=== PATIENT | male | born 1985 | race Caucasian/White ===

== ENCOUNTER → 2019-11-29 | Outpatient (CLI) | payer OTHER ==
[~2019-11-29] MED LIST: AMOX500 PO; Bactrim Ds Tab1 EACH PO; CYCL10 PO; DIAZ5; HYDACE5; HYDACE5 PO; INCARCERATION; MINO50 PO; NAPR500 PO; NAPR550 PO; ONDA4ODT MM; OXYACE5T PO; PENVK500 PO
== END | disposition home or self-care (01) ==
LOC: LAB SHORT 18:00 → LAB EV 18:00
DX: L03.317 Cellulitis of buttock (principal)
CPT/HCPCS: 87070; 87075; 87077; 87147; 87186; 87205

== ENCOUNTER 2021-10-27 21:28 | Inpatient (IN) | payer OTHER ==
[~2021-10-27] VITALS: Ht 175.3 cm; Wt 65.6 kg
[2021-10-27 21:59] LABS: BASOPHILS ABSOLUTE AUTO 0.02 K/mm3 (0.00-0.23); BASOPHILS PERCENT AUTO 1 % (0-2); EOSINOPHILS ABSOLUTE AUTO 0.29 K/mm3 (0.00-0.68); EOSINOPHILS PERCENT AUTO 7 % (0-6); Hematocrit 28.1 % (37.0-53.0); Hemoglobin 9.3 g/dL (13.5-17.5); IMMATURE GRAN ABSOLUTE AUTO 0.04 K/mm3 (0.00-0.10); IMMATURE GRAN PERCENT AUTO 1 % (0-1); LYMPHOCYTES ABSOLUTE AUTO 1.99 K/mm3 (0.84-5.20); LYMPHOCYTES PERCENT AUTO 48 % (21-46); MONOCYTES ABSOLUTE AUTO 0.46 K/mm3 (0.16-1.47); MONOCYTES PERCENT AUTO 11 % (4-13); Mean Corpuscular HGB 29.2 pg (26.0-34.0); Mean Corpuscular HGB Conc 33.1 g/dL (31.5-36.5); Mean Corpuscular Volume 88 fL (80-100); Mean Platelet Volume 10.1 fL (9.1-12.4); NEUTROPHILS ABSOLUTE AUTO 1.39 K/mm3 (1.96-9.15); NEUTROPHILS PERCENT AUTO 33 % (41-73); Platelet Count 128 K/mm3 (150-400); RDW Coefficient Variation 18.7 % (11.7-14.2); RDW Standard Deviation 60.3 fL (35.1-46.3); Red Blood Cell Count 3.19 M/mm3 (4.30-5.90); White Blood Cell Count 4.19 K/mm3 (4.00-11.30)
[2021-10-27 22:17] LABS: Alanine Aminotransfer (ALT/SGP 56 U/L (12-78); Albumin, Blood 2.6 g/dL (3.4-5.0); Albumin/Globulin Ratio 0.5 (0.8-1.8); Alk Phos 164 U/L (50-136); Anion Gap 2 mmol/L (6-16); Aspartate Aminotrans (AST/SGOT 37 U/L (12-37); Bilirubin, Total 0.2 mg/dL (0.1-1.0); Blood Urea Nitrogen 17 mg/dL (8-24); Bun/Creatinine Ratio 23.4 (12.0-20.0); CO2, Blood 31 mmol/L (21-32); Calcium, Blood 8.5 mg/dL (8.5-10.1); Chloride, Blood 104 mmol/L (98-108); Creatinine, Blood 0.73 mg/dL (0.60-1.20); Globulin, Blood 5.1 g/dL (2.2-4.0); Glomerular Filtration Rate >60 (60-); Glucose, Blood 145 mg/dL (70-99); Potassium, Blood 4.2 mmol/L (3.5-5.5); Sodium, Blood 137 mmol/L (136-145); Total Protein, Blood 7.7 g/dL (6.4-8.2)
[2021-10-27 23:37] LABS: Source, Urine Clean Catch
[2021-10-27 23:39] LABS: Bilirubin, Urine Neg (Neg); Blood, Urine Neg (Neg); Glucose Qualitative, Urine Neg (Neg); Ketones, Urine Neg (Neg); Leukocyte Esterase, Urine Neg (Neg); Nitrite, Urine Neg (Neg); Protein, Urine Neg (Neg); Urobilinogen, Urine 1+ (Normal)
[2021-10-27 23:57] LABS: Appearance, Urine Clear (Clear); Color, Urine Yellow (P-Yellow)
[2021-10-28 00:48] LABS: Appearance, CSF Clear (Clear); Color, CSF No Color (No Color)
[2021-10-28 00:49] LABS: RBC Count, CSF 3 /mm3 (0-0); WBC Count, CSF 16 /mm3 (0-5)
[2021-10-28 00:57] LABS: Glucose, CSF 60 mg/dL (40-70)
[2021-10-28 01:07] LABS: Appearance, CSF Clear (Clear); Color, CSF No Color (No Color); RBC Count, CSF 28 /mm3 (0-0); WBC Count, CSF 6 /mm3 (0-5)
[2021-10-28 01:42] LABS: Lymphocytes, CSF 55 % (40-80); Monocytes, CSF 42 % (15-45); Neutrophils, CSF 3 % (0-6)
[2021-10-28 01:45] LABS: Lymphocytes, CSF 53 % (40-80); Monocytes, CSF 32 % (15-45); Neutrophils, CSF 15 % (0-6)
[2021-10-28 02:08] LABS: Cryptococcus Neoformans/Gattii Not Detected (NOT DETECT); Enterovirus Not Detected (NOT DETECT); Escherichia Coli K1 Detected (NOT DETECT); Haemophilus Influenza Not Detected (NOT DETECT); Herpes Simplex Virus 1 Not Detected (NOT DETECT); Herpes Simplex Virus 2 Not Detected (NOT DETECT); Human Herpesvirus 6 Not Detected (NOT DETECT); Human Parechovirus Not Detected (NOT DETECT); Listeria Monocytogenes Not Detected (NOT DETECT); Neisseria Meningitidis Not Detected (NOT DETECT); Streptococcus Agalactiae Not Detected (NOT DETECT); Streptococcus Pneumoniae Not Detected (NOT DETECT); Varicella Zoster Virus Not Detected (NOT DETECT)
--- NOTE | 2021-10-28 02:55 | NUR ---
RECEIVED REPORT FROM ED JUAN MOULTON.
--- NOTE | 2021-10-28 03:40 | NUR ---
PT ARRIVED TO RM 340 VIA [facility]. PT ASSISTED FROM GURNEY TO ROOM BED WITH SOME ASSISTANCE. PT APPEARS TO BE WEAK WHEN STANDING. ON RA. PRETTY ANXIOUS AND APPEARS UNCERTAIN OF WHAT IS GOING ON. BROTHER AT BEDSIDE. VERY ATTENTIVE TO THE PATIENTS NEEDS. WILL PROVIDE CARE T/O SHIFT. BED ALARM ON. CALL LT IN REACH.
--- NOTE | 2021-10-28 05:23 | NUR ---
SHIFT SUMMARY: ED ADMIT AT 0340. PT ALERT AND COOPERATIVE WITH CARE. CAN MAKE HIS NEEDS KNOWN. ANXIOUS AT TIMES. CAN BE REDIRECTED. BED ALARM ON FOR PT SAFETY. USES URINAL AT BEDSIDE WITH SBA. ON RA. NS AT 75 MLS/HR FOR 1.5L. FIRST LITER INFUSING. HAS A RED, DRY, RAISED RASH TO FOREHEAD AND FACE. APPETITE GOOD. NO OTHER NEEDS AT THIS TIME. WILL CONTINUE TO PROVIDE CARE UNTIL SHIFT REPORT TO ONCOMING NURSE.
[2021-10-28 06:28] LABS: BASOPHILS ABSOLUTE AUTO 0.01 K/mm3 (0.00-0.23); BASOPHILS PERCENT AUTO 0 % (0-2); EOSINOPHILS ABSOLUTE AUTO 0.27 K/mm3 (0.00-0.68); EOSINOPHILS PERCENT AUTO 7 % (0-6); Hematocrit 29.6 % (37.0-53.0); Hemoglobin 9.4 g/dL (13.5-17.5); IMMATURE GRAN ABSOLUTE AUTO 0.05 K/mm3 (0.00-0.10); IMMATURE GRAN PERCENT AUTO 1 % (0-1); LYMPHOCYTES ABSOLUTE AUTO 1.44 K/mm3 (0.84-5.20); LYMPHOCYTES PERCENT AUTO 35 % (21-46); MONOCYTES PERCENT AUTO 5 % (4-13); Mean Corpuscular HGB Conc 31.8 g/dL (31.5-36.5); Mean Corpuscular Volume 88 fL (80-100); Mean Platelet Volume 9.9 fL (9.1-12.4); NEUTROPHILS ABSOLUTE AUTO 2.12 K/mm3 (1.96-9.15); NEUTROPHILS PERCENT AUTO 52 % (41-73); Platelet Count 138 K/mm3 (150-400); RDW Coefficient Variation 19.1 % (11.7-14.2); RDW Standard Deviation 61.7 fL (35.1-46.3); Red Blood Cell Count 3.36 M/mm3 (4.30-5.90); White Blood Cell Count 4.09 K/mm3 (4.00-11.30)
[2021-10-28 06:48] LABS: Alanine Aminotransfer (ALT/SGP 48 U/L (12-78); Albumin, Blood 2.5 g/dL (3.4-5.0); Albumin/Globulin Ratio 0.5 (0.8-1.8); Alk Phos 162 U/L (50-136); Anion Gap 3 mmol/L (6-16); Aspartate Aminotrans (AST/SGOT 31 U/L (12-37); Bilirubin, Total 0.2 mg/dL (0.1-1.0); Blood Urea Nitrogen 14 mg/dL (8-24); Bun/Creatinine Ratio 18.7 (12.0-20.0); CO2, Blood 30 mmol/L (21-32); Calcium, Blood 8.6 mg/dL (8.5-10.1); Chloride, Blood 104 mmol/L (98-108); Creatinine, Blood 0.75 mg/dL (0.60-1.20); Globulin, Blood 5.2 g/dL (2.2-4.0); Glomerular Filtration Rate >60 (60-); Glucose, Blood 107 mg/dL (70-99); Potassium, Blood 4.2 mmol/L (3.5-5.5); Sodium, Blood 137 mmol/L (136-145); Total Protein, Blood 7.7 g/dL (6.4-8.2)
[2021-10-28 06:49] LABS: U Amphetamine Screen Not Detected; U Barbituate Screen Not Detected; U Benzodiazapine Screen Not Detected; U Buprenorphine Screen Not Detected; U Cannabinoids Screen DETECTED; U Cocaine Screen Not Detected; U Methadone Screen Not Detected; U Methamphetamine Screen Not Detected; U Opiates Screen DETECTED; U Oxycodone Screen Not Detected; U Phencyclidine Screen Not Detected
[2021-10-28 06:51] LABS: U Propoxyphene Screen Not Detected
--- NOTE | 2021-10-28 09:30 | NUR ---
CALLED DR HUBBARD- UPON MORNING ASSESSMENT IT WAS NOTED THAT THE PT WAS HOT TO THE TOUCH AND SHIVVERING STATING HE WAS COLD. HR ELEVATED. VITALS CHECKED BP LOW (SBP LESS THAN 100) HR 135 TEMP 102.3. TYLENOL GIVEN AT THAT TIME, CALLED DR HOLM FOR FURTHER ORDERS. RECIEVED ORDER FOR OT BOLUS OF 1L NS. REMOVED ALL BLANKETS ON PT, STARTED FLUID BOLUS. PT BEGAN CRYING CALLED PHARMACY TO GET PO MEDICATION FOR ANXIETY. CALLED DAMION MOULTON AND HAD HER ASK DR HOLM TO RETURN TO THE PT ROOM TO REEVALUATE THE PT.
--- NOTE | 2021-10-28 11:00 | NUR ---
DR HLOM AND HANNAH CAME TO SEE THE PT- PT IN BED CRYING C/O PAIN, RECIEVED ORDER FOR PO OXY TID. FLUID BOLUS NEARLY COMPLETED. SPOKE OF THE PT CSF POSITIVE FOR E.COLI, BEING BACTERIAL MENINGITIS. PT ISOLATION CHANGED TO AIRBORN. RECIEVED ORDER TO TRANSFER THE PT TO PCU FOR CLOSER OBSERVATION FOR POSSIBLE SEPSIS W/O ELEVATED WBC R/T HIV. PT BROTHER AT THE BEDSIDE AT THE TIME OF TRANSFER TO ROOM PCU 12. CALLED DR HOLM PRIOR TO TRANSFER TO CLARIFY IVF ORDERS. OK TO FINISH CURRENT LITER AT 125ML/HR THEN RUN ONE ADDITIONAL LITER AT 125ML/HR THEN STOP IVF. PASSED ON IN REPORT TO TANNING WHEEL FILLER.
--- NOTE | 2021-10-28 13:07 | NUR ---
TRANSFER NOTE: PATIENT TRANSFERRED TO PCU 12 THIS AFTERNOON. VERY EMOTIONAL AND HUNGRY. ALERT AND ORIENTED X4. AT TIMES SLOW TO RESPOND. PERRLA. DENIES NUMBNESS/TINGLING. ON ROOM AIR SATING ABOVE 94%. LUNGS SOUNDING CLEAR. TELE SHOWING SINUS TACH WITH HR 100-110'S. BP SOFT. FLUIDS INFUSING AT THIS TIME 125 ML/HR. ONE MORE BAG OF NS TO BE INFUSED AT 125 ML/HR ONCE CURRENT BAG COMPLETED. COMPLAINS OF HUNGER PAINS. BROTHER AT BEDSIDE HELPING FEED SNACKS. COMPLAINS OF CONSTIPATION. CALL PLACED TO DR. HOLM, SEE EMAR FOR ORDERS. FACIAL/SCALP RASH - SMALL RED DRY CIRCLES. PATIENT STATES THEY CAUSE EXTREME PAIN AND ARE ITCHY. HYDROCORTISONE CREAM TO BE APPLIED. BROTHER AT BEDSIDE. ORAL TEMP IMPROVING. AIRBORNE PRECAUTIONS IN PLACE. REGULAR DIET. CALL LIGHT IN REACH. BED ALARM ON FOR SAFETY. PATIENT ORIENTED TO ROOM AND UNIT. WILL CONTINUE TO MONITOR.
--- NOTE | 2021-10-28 17:43 | NUR ---
SHIFT SUMMARY: NO ACUTE CHANGES. PATIENT REMAINS DROWSY, BUT AROUSABLE. REMAINS ON ROOM AIR. TELE SHOWING SINUS RHYTHM - SINUS TACH. DENIES CHEST PAIN. BP REMAINS SOFT. NS INFUSING AT 125 ML/HR. TOLERATING PO DIET, DRINKING FLUIDS. PATIENT HOT TO TOUCH, SHIVERING AT TIMES, AND COMPLAINS OF BEING COLD. TEMPORAL, ORAL, AND AXILLARY TEMPS ALL READING AT 98.2-98.7 DEGREES. TYLENOL GIVEN FOR HEAD/NECK PAIN, NO RELIEF. PRN OXYCODONE GIVEN. PATIENT SLEEPING ON AND OFF. URINE SAMPLE SENT TO LAB, RESULTS PENDING. CALL LIGHT IN REACH. WILL CONTINUE TO MONITOR AND REPORT OFF TO ONCOMING RN.
--- NOTE | 2021-10-28 19:57 | NUR ---
CARE ASSUMPTION PT IS EXTREMELY LETHARGIC ON SLIGHTLY AROPUSING WHEN ASKED A QUUESTION MULTIPLE TIMES. PT UNABLE TO OPEN EYES DUE TO LIGHT SENSITIVITY. PT IS ABLE TO TELL ME HIS NAME, DATE OF AND WHERE HE IS AT BUT ON;Y ANSWERS IN SHPRT SENTANCES W A WEAK MUMBLING VOICE. PUPILSD ARE 2CM AND FIXED. PT HAS EQUAL BUT WEAK PRODUCTION SUPPLY EQUIPMENT TENDER STRENGTH. NO MUSCLE RIGIDITY NOTED AT THIS TIME. PT REPORTS NECK STIFFNESS AND PAIN. BP WNL. HR ST AT 100'S. TEMP AFEBRILE. RR-16. FLUIDS RUNNING AT 125ML/HR. O2 SATS >94% ON RM AIR. WCTM
--- NOTE | 2021-10-29 05:55 | NUR ---
CASINO FLOOR RUNNER SUMMARU PT HAS REMAINED LETHARGIC THIS SHIFT BUT DOES APPEAR SLIGHTLY MORE ALERT THIS AM. PT HAVE HAD DIFFICULTY WITH PHOTOSENSITIVITY SO HE DOES NOT OPEN HIS EYES UNLESS THE LIGHTS ARE DIMMED. BP HAS REMAINED SOFT THIS SHIFT BUT HE HAS MAINTAINED A MAP >65. TELE SHOWING SR/ST 90'S-100'S. O2 SATS >94% ON RM AIR W RESP EVEN AND UNLABORED. PT REPORTING NECK PAIN THROUGHOUT THE SHIFT, MEDICATED PER EMAR. PT REMAINED AFEBRILE THIS SHIFT. PT SLEPT VERY HARD FOR MOST OF THE SHIFT BUT HAS REMAINED AROUSABLY BY SPEECH. PT HAS HAD GOOD URINE OUTPUT THIS SHIFT, SEE I&O'S FOR DETAILS. WILL REPORT TO ONCOMING RN.
[2021-10-29 06:41] LABS: BASOPHILS ABSOLUTE AUTO 0.01 K/mm3 (0.00-0.23); BASOPHILS PERCENT AUTO 0 % (0-2); EOSINOPHILS ABSOLUTE AUTO 0.14 K/mm3 (0.00-0.68); EOSINOPHILS PERCENT AUTO 4 % (0-6); Hematocrit 26.7 % (37.0-53.0); Hemoglobin 8.5 g/dL (13.5-17.5); IMMATURE GRAN ABSOLUTE AUTO 0.02 K/mm3 (0.00-0.10); IMMATURE GRAN PERCENT AUTO 1 % (0-1); LYMPHOCYTES ABSOLUTE AUTO 2.18 K/mm3 (0.84-5.20); LYMPHOCYTES PERCENT AUTO 55 % (21-46); MONOCYTES ABSOLUTE AUTO 0.19 K/mm3 (0.16-1.47); MONOCYTES PERCENT AUTO 5 % (4-13); Mean Corpuscular HGB 28.3 pg (26.0-34.0); Mean Corpuscular HGB Conc 31.8 g/dL (31.5-36.5); Mean Corpuscular Volume 89 fL (80-100); Mean Platelet Volume 10.2 fL (9.1-12.4); NEUTROPHILS ABSOLUTE AUTO 1.42 K/mm3 (1.96-9.15); NEUTROPHILS PERCENT AUTO 36 % (41-73); Platelet Count 151 K/mm3 (150-400); RDW Coefficient Variation 19.1 % (11.7-14.2); RDW Standard Deviation 61.9 fL (35.1-46.3); White Blood Cell Count 3.96 K/mm3 (4.00-11.30)
[2021-10-29 06:58] LABS: Anion Gap 4 mmol/L (6-16); Blood Urea Nitrogen 9 mg/dL (8-24); Bun/Creatinine Ratio 13.7 (12.0-20.0); CO2, Blood 28 mmol/L (21-32); Calcium, Blood 8.1 mg/dL (8.5-10.1); Chloride, Blood 108 mmol/L (98-108); Creatinine, Blood 0.66 mg/dL (0.60-1.20); Glomerular Filtration Rate >60 (60-); Glucose, Blood 93 mg/dL (70-99); Potassium, Blood 3.7 mmol/L (3.5-5.5); Sodium, Blood 140 mmol/L (136-145)
--- NOTE | 2021-10-29 09:03 | NUR ---
ASSUMED CARE FOR PATIENT AT 0700. PATIENT A&0 X4. ANSWERS QUESTIONS APPRORIATELY WITH EYES CLOSED. PLEASANT AND COOPERATIVE WITH CARE. PATIENT REPORTS OF DISCOMFORT AROUND EVA AREA FROM CATHETER INSETION ATTEMPT. PATIENT REPORTS HEADACHE AND BACKACHE WHEN SITTING UPRIGHT IN BED. PATIENT ABLE TO TOLERATE SITTING UP FOR ABOUT 10 MINUTES EATING HIS BREAKFAST AND REQUESTED TO BE LYING BACK WITH THE HOB DOWN . REPOSITIONED PATIENT TO RIGHT SIDE AND HE REPORTED COMFORT. LIGHT DIMMED ON PER PATIENT REQUEST. SCHEDULED MORNING MEDS GIVEN. CALL LIGHT AND URINAL WITHIN REACH. BED ALARM ON AND IN LOW POSITION. WILL CONTINUE MONITOR.
[2021-10-29 10:08] LABS: RPR Reactive (Nonreactive)
--- NOTE | 2021-10-29 10:09 | NUR ---
Very anxious, crying and saying that he needed to have a bowel movement. Standby assist to bedside commode. Pt c/o pain and difficulty while attempting to have BM. STates no movement for about a week. Passed gas only. Then helped him back to bed. Also c/o pain in his neck and back at this time. Will medicate for anxiety and pain .
--- NOTE | 2021-10-29 11:40 | NUR ---
Pt set bed alarm off by sitting on side of bed. He is angry, cursing, and saying that he needs to get "out of here." States that he needs to walk around. Agitated, cursing and verbalized frustration at all the wires/alarms. Pt was disconnected from continuous oximetry and assessed his ambulation to the bathroom. Denies dizzyness/lightheadedness. He voided. Showed the pt cord on bathroom wall to pull in case of need for staff assistance. Back in bed and given extra food at this time as he was saying that he was very hungry. Eating with a good appetite. Apologizing now for his earlier outburst. Reassured pt, provided oral fluids as well.
[2021-10-29 15:08] LABS: % CD 4 POS. LYMPH. 15.4 % (30.8-58.5); ABSOLUTE CD 4 HELPER 323 /uL (359-1519); BASOS 0 % (Not Estab.); EOS 5 % (Not Estab.); EOS (ABSOLUTE) 0.3 x10E3/uL (0.0-0.4); HEMATOLOGY COMMENTS: Note: (.); HEMOGLOBIN 8.7 g/dL (13.0-17.7); IMMATURE GRANULOCYTES 1 % (Not Estab.); LYMPHS 43 % (Not Estab.); LYMPHS (ABSOLUTE) 2.1 x10E3/uL (0.7-3.1); MCH 28.2 pg (26.6-33.0); MCHC 32.2 g/dL (31.5-35.7); MCV 88 fL (79-97); MONOCYTES 11 % (Not Estab.); MONOCYTES(ABSOLUTE) 0.5 x10E3/uL (0.1-0.9); NEUTROPHILS 40 % (Not Estab.); PLATELETS 140 x10E3/uL (150-450); RBC 3.08 x10E6/uL (4.14-5.80); RDW 18.5 % (11.6-15.4); WBC 4.9 x10E3/uL (3.4-10.8)
--- NOTE | 2021-10-29 16:55 | NUR ---
Noted consultation request order: Called Dr. Ana Rich's office, but the office is closed at this time. Left message for office to call PCU for details.
--- NOTE | 2021-10-29 17:26 | NUR ---
Pt has just finished a large snack about an hour ago. Dinner tray brought in, and pt is very eager to eat it. Blood draw and antibiotic administration completed. PT is sitting up, c/o very bad headache; however, the pain medication given earlier today according to the patient "did not do anything at all". It seems that the only thing that helps his pain is lying in darkened room with HOB down.
--- NOTE | 2021-10-29 18:10 | NUR ---
SHIFT SUMMARY PT HAS BEEN AMBULATING TO BATHROOM INDEPENDENTLY. GAIT IS STABLE. PRN PAIN MEDS GIVEN X1 FOR COMFORT. PATIENT'S BROTHER CAME BY TO SEE PATIENT THIS AFTERNOON AND SPOKE TO ORALIA MOULTON REGARDING PATIENT'S UPDATES. PATIENT HAS GOOD APPETITE. PROVIDED SNACKS THROUGHOUT THE DAY REQUESTED. PATIENT'S TRYING TO HAVE A BM, BUT NO RESULT. SCHEDULED BOWEL REGIMEN WAS GIVEN SEE EMAR. PATIENT COMPLAINS OF HEADACHE STATES, THE PAIN MEDICATION WAS NOT HELPING. PROVIDED NONPHARMACOLOGICAL METHOD DIMMED THE LIGHT IN ROOM AND BLIND CLOSED WITH THE HOB AT ABOUT 10 DEGREES. IT SEEMS TO BE HELPING WITH THE PATIENT. THE PATIENT WAS ABLE TO SLEEP OFF AND ON THROUGHOUT THE DAY. CALL LIGHT AND URINAL WITHIN REACH. BED IN LOWEST POSITION. WILL CONTINUE MONITOR AND GIVE REPORT TO ONCOMING RN.
[2021-10-30 01:09] LABS: CHLAMYDIA TRACHOMATIS, NAA Negative (Negative)
[2021-10-30 04:31] LABS: BASOPHILS ABSOLUTE AUTO 0.02 K/mm3 (0.00-0.23); BASOPHILS PERCENT AUTO 1 % (0-2); EOSINOPHILS ABSOLUTE AUTO 0.14 K/mm3 (0.00-0.68); EOSINOPHILS PERCENT AUTO 4 % (0-6); Hematocrit 28.5 % (37.0-53.0); Mean Corpuscular HGB Conc 31.6 g/dL (31.5-36.5); Mean Corpuscular Volume 89 fL (80-100); Mean Platelet Volume 9.7 fL (9.1-12.4); Platelet Count 160 K/mm3 (150-400); RDW Standard Deviation 61.2 fL (35.1-46.3); Red Blood Cell Count 3.21 M/mm3 (4.30-5.90); White Blood Cell Count 3.28 K/mm3 (4.00-11.30)
[2021-10-30 04:33] LABS: IMMATURE GRAN ABSOLUTE AUTO 0.05 K/mm3 (0.00-0.10); IMMATURE GRAN PERCENT AUTO 2 % (0-1); LYMPHOCYTES ABSOLUTE AUTO 1.95 K/mm3 (0.84-5.20); LYMPHOCYTES PERCENT AUTO 60 % (21-46); MONOCYTES ABSOLUTE AUTO 0.34 K/mm3 (0.16-1.47); MONOCYTES PERCENT AUTO 10 % (4-13); NEUTROPHILS ABSOLUTE AUTO 0.78 K/mm3 (1.96-9.15); NEUTROPHILS PERCENT AUTO 24 % (41-73)
[2021-10-30 04:55] LABS: Anion Gap 4 mmol/L (6-16); Blood Urea Nitrogen 15 mg/dL (8-24); CO2, Blood 28 mmol/L (21-32); Calcium, Blood 8.5 mg/dL (8.5-10.1); Chloride, Blood 108 mmol/L (98-108); Creatinine, Blood 0.63 mg/dL (0.60-1.20); Glomerular Filtration Rate >60 (60-); Glucose, Blood 96 mg/dL (70-99); Sodium, Blood 140 mmol/L (136-145)
--- NOTE | 2021-10-30 06:05 | NUR ---
TAPE CONTROL SKIN OR SPAR MILL OPERATOR SUMMARY PT IS ALERT AND ORIENTED AND COMMUNICATING APPROPRIATELY. PT IS STILL SLIGHTLY LETHARGIC BUT HAS BEEN ABLE TO AMBULATE TO THE BATHROOM UNASSISTED THIS SHIFT. PT'S BP WNL AND STABLE, TELE SHOWING SR 80-90'S THIS SHIFT. PT AFEBRILE. O2 SATS >94% ON RM AIR. PT CONTINUES TO C/O NECK AND BACK PAIN, MEDICATED PER EMAR W MINIMAL RELEIF. PT HAS SLEPT FOR MAJORITY OF THE NIGHT W NO NEW EVENTS. WILL REPORT TO ONCOMING RN.
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
--- NOTE | 2021-10-30 08:02 | NUR ---
ASSUMED CARE FOR PATIENT. PATIENT IS A&O X4. PLEASANT, COOPERATIVE AND ANSWER TO QUESTION APPROPRIATELY. PATIENT COMPLAIN OF BACK/NECK AND ALL OVER BODY PAIN. PATIENT REPORTED TRYING TO HAVE BM, BUT NO RESULT. GIVEN PRN PAIN MEDICATION AND BOWEL REGIMEN THIS AM. VSS, NO FEVER, AND HYPERACTIVE BOWEL TONE PRESENT. ENCOURAGED PATIENT TO AMBULATE IN ROOM THROUGHOUT THE DAY. CALL LIGHT AND URINAL WITHIN REACH. BED IN LOW POSITION. WILL CONTINUE TO MONITOR.
--- NOTE | 2021-10-30 12:07 | NUR ---
PATIENT TOOK A SHOWER INDEPENDETLY AND TOLERATED WELL. NO COMPLAIN OF PAIN OR SOB. PATIENT REPORT THAT HE FEELS BEETER AFTER SHOWER. PATIENT REPORT STILL NO BM. WILL CONTINUE TO MONITOR.
--- NOTE | 2021-10-30 13:49 | NUR ---
Pt appears to be sleeping restfully, lying on his left side, facing the window in the ante room door. Respirations are even and unlabored.
--- NOTE | 2021-10-30 14:10 | NUR ---
Pt requesting cake and ice cream. [facility]. He is appreciative.
--- NOTE | 2021-10-30 18:28 | NUR ---
PATIENT HAS BEEN AMBULATING IN ROOM AND TO BATHROOM INDEPENDENTLY THROUGHOUT THE DAY. VSS, TELE HAS BEEN DISCONTINUED. PATIENT AFIBRILE. PATIENT C/O PAIN NECK, BACK AND ALL OVER HIS BODY. MEDICATED PER EMAR. REPORT WITH MINIMAL RELIEF. PATIENT REPORTS ABOMINAL DISCOMFORT AND STILL NO BM. GIVEN MIRALAX AND SUPPOSITORY PER EMAR. WILL CONTINUED TO MONITOR. CALL LIGHT AND URINAL WITHIN REACH. BED IN LOWEST POSITION AND SIDE RAIL UP. REPORT TO ONCOMING RN.
--- NOTE | 2021-10-30 22:08 | NUR ---
Assumed care of pt at 1900. A/Ox4, very friendly and cooperative with care. Independent in room and calls appropriately. Head/Neck/Back pain reported 10/10, medicated per emar. Resp WNL. SBP low 100's. Not on tele. Patient was able to have a large BM and reports relief with bowelcare regimen and wanted to hold off on tonights dose. Patient participated in doing bedbath. Pt reports "jock itch" occuring in genital area, will pass along to dayshift RN. Will update as changes occur.
[2021-10-31 05:32] LABS: BASOPHILS ABSOLUTE AUTO 0.04 K/mm3 (0.00-0.23); BASOPHILS PERCENT AUTO 1 % (0-2); EOSINOPHILS ABSOLUTE AUTO 0.19 K/mm3 (0.00-0.68); EOSINOPHILS PERCENT AUTO 4 % (0-6); Hematocrit 29.8 % (37.0-53.0); Hemoglobin 9.3 g/dL (13.5-17.5); IMMATURE GRAN ABSOLUTE AUTO 0.14 K/mm3 (0.00-0.10); IMMATURE GRAN PERCENT AUTO 3 % (0-1); LYMPHOCYTES ABSOLUTE AUTO 2.52 K/mm3 (0.84-5.20); LYMPHOCYTES PERCENT AUTO 53 % (21-46); MONOCYTES ABSOLUTE AUTO 0.52 K/mm3 (0.16-1.47); MONOCYTES PERCENT AUTO 11 % (4-13); Mean Corpuscular HGB 28.2 pg (26.0-34.0); Mean Corpuscular HGB Conc 31.2 g/dL (31.5-36.5); Mean Corpuscular Volume 90 fL (80-100); Mean Platelet Volume 10.4 fL (9.1-12.4); NEUTROPHILS ABSOLUTE AUTO 1.36 K/mm3 (1.96-9.15); NEUTROPHILS PERCENT AUTO 29 % (41-73); Platelet Count 189 K/mm3 (150-400); RDW Coefficient Variation 19.1 % (11.7-14.2); RDW Standard Deviation 61.5 fL (35.1-46.3); White Blood Cell Count 4.77 K/mm3 (4.00-11.30)
[2021-10-31 05:58] LABS: Anion Gap 4 mmol/L (6-16); Blood Urea Nitrogen 11 mg/dL (8-24); CO2, Blood 28 mmol/L (21-32); Calcium, Blood 8.7 mg/dL (8.5-10.1); Chloride, Blood 109 mmol/L (98-108); Creatinine, Blood 0.69 mg/dL (0.60-1.20); Glomerular Filtration Rate >60 (60-); Glucose, Blood 93 mg/dL (70-99); Potassium, Blood 3.9 mmol/L (3.5-5.5); Sodium, Blood 141 mmol/L (136-145)
--- NOTE | 2021-10-31 10:25 | NUR ---
ASSUMED CARE OF PATIENT AT 0700. PATIENT IS A&O X4. PATIENT IS VERY PLEASANT AND COOPERATIVE WITH CARE. PATIENT REPORT THAT HE HAD BM LAST NIGHT 10/30/21 AND STATED, "I FEELS SO MUCH BETTER". PATIENT DENIES NAUSEA OR ABDOMINAL DISCOMFORT. PATIENT HAS BEEN AMBULATING IN ROOM INDEPENDENTLY. PATIENT IS NOT ANXIOUS. PATIENT REPORTS OF HEAD/NECK/BACK ACHE, STATED "IT'S OKAY FOR NOW, MAYBE YOU CAN GIVE ME LATER WHEN YOU OME BACK". PATIENT ATE 100% OF HIS BREAKFAST. WILL CONTINUE TO MONITOR PATIENT. PATIENT RESTING IN BED WITH CALL LIGHT AND URINAL WITHIN HIS REACH. BED IN LOW POSITION.
--- NOTE | 2021-10-31 17:32 | NUR ---
SHIFT SUMMARY PATIENT HAS BEEN INDEPENDENT IN ROOM. PATIENT CONTINUE TO C/O OF NECK/BACK PAIN, MEDICATED PER EMAR FOR COMFORT.PATIENT REPORTED SIGN OF LITTLE RELIEF PATIENT HAS BEEN SLEEPING OFF AND ON THROUGHOUT THE DAY. PROVIDED SNACKS REQUESTED. VSS, AFIBRILE AND NO TELE. PATIENT HAS NO CHANGES THIS SHIFT. CALL LIGHT AND URINAL WITHIN REACH. BED IN LOWEST POSITION. WILL CONTINUE TO MONITOR AND REPORT TO ONCOMING RN.
--- NOTE | 2021-10-31 23:13 | NUR ---
Assumed care of pt at 1900. Patient lying in bed after showering, c/o 810 back/neck pain medicated per emar. VSS. No changes from my previous assessment, will update as changes occur.
--- NOTE | 2021-11-01 02:03 | NUR ---
ASSUMED CARE OF PATIENT- REVIEWED AND AGREE WITH PRIOR NURSE DOCUMENTED ASSESSMENT.
--- NOTE | 2021-11-01 05:42 | NUR ---
SHIFT SUMMARY: PCU TRANSFER- A/OX4. ADLIB IN ROOM, INDEPENDENT CARE OF ADL'S. PT PLEASANT, FOLLOWS COMMANDS. REPORTED INCREASED PAIN IN HEAD, NECK AND SCALP- RELIEVED WITH PRN PAIN MANAGEMENT- REVIEW EMAR. FACIAL RASH NOTED- PENDING DERMATOLOGY CONSULT. ADEQUATE INTAKE OF FLUIDS AND FOOD. CALLS APPROPRIATELY. BED IN LOW POSITION, CALL MOLINA IN REACH.
[2021-11-01 08:11] LABS: HIV-1 RNA BY PCR 185370 (.); LOG10 HIV-1 RNA 5.268 (.)
--- NOTE | 2021-11-01 13:48 | NUR ---
SHIFT SUMMARY PT IS A&O, INDEPENDENT IN AND TO [facility]. WAS PLEASANT AND CO-OP WITH CARE FIRST PART OF THE DAY, BUT BECAME IRRITABLE WITH HIS BROTHER WHEN HE CAME TO VISIT. PT'S BROTHER BROUGHT IN PT'S CELL PHONE AND WELDING MACHINE OPERATOR ELECTRO [employer] FOR HIM. BROTHER THEN REPORTED THAT PT WAS CURSING AND ANGRY SO HE WAS NOT GOING TO STAY AND VISIT. PT'S BROTHER REPORTED RECENT SEXUAL CONTACT'S NAME IS MATTHEW JESSICA, NOT ROMARIO. PT WILL HAVE INFO ON HIS PHONE FOR DR YOUNG/DR ARENAS. PT ABLE TO USE CALL LT APPROP. CALLS FOR SNACKS NEEDED. WILL CONTINUE TO MONITOR.
--- NOTE | 2021-11-01 18:57 | NUR ---
PT REPORTED RECENT SEXUAL CONTACT WAS MATTHEW TORRES. PER PT, HE WAS NOTIFIED BY PT TO GET TESTED.
--- NOTE | 2021-11-02 04:17 | NUR ---
SHIFT SUMMARY: A/OX4 ADLIB IN ROOM AND INDEPENDENT WITH ADL'S. COMPLAINT OF ANXIETY AT THE BEGINNING OF SHIFT AT THAT TIME HR 120'S, PRN ANTI ANXIETY MEDICATION ADMINISTERED AND HR SIGNIFICANTLY DECREASED TO 106BPM. PT ABLE TO REST THROUGHOUT THE NIGHT. BED IN LOW POSITION, CALL MOLINA IN REACH. CALLS APPROPRIATELY AND FOLLOWS COMMANDS.
--- NOTE | 2021-11-02 17:08 | NUR ---
SHIFT SUMMARY: MILDLY TACHYCARDIC IN LOW 100'S. LUNG SOUNDS ARE DIM THROUGHOUT, ON ROOM AIR, NO COUGH NOTED. MEDICATED FOR PAIN X 1 AND ANXIETY X 1 WITH ADEQUATE RELIEF. HE IS REQUESTING "SNACKS" NEARLY EVERY HOUR; ORDERED DOUBLE PORTIONS FOR HIS TRAYS AND EDUCATED HIM THAT WE HAVE LIMITED AVAILABILITY OF EXTRA FOOD. UP INDEPENDENTLY IN ROOM, NO BM TODAY.
--- NOTE | 2021-11-03 03:07 | NUR ---
SHIFT SUMMARY: A/OX4, ADLIB IN ROOM, INDEPENDENT ADL'S. POST ADMINISTRATION OF SCHEDULED 2100 MEDICATIONS PATIENT HAS BEEN RESTING WHEN ROUNDING. NORCO AND HYDROXYZINE ADMINISTERED X 1- REVIEW EMAR. BED IN LOW POSITION, CALL MOLINA IN REACH. PATIENT CALLS APPROPRIATELY, FOLLOWS COMMANDS.
--- NOTE | 2021-11-03 16:14 | NUR ---
PATIENT'S BROTHER VISITING, BROUGHT PT SOME SNACKS. DURING VISIT, PT AND HIS BROTHER HAD SOME SORT OF VERBAL ALTERCATION. PATIENT BECAME ANGRY AND SHOVED HIS BEDSIDE TABLE OVER, SPILLING MULTIPLE OPEN DRINKS. WHEN THIS AUTHOR WENT TO INVESTIGATE, PT'S BROTHER STATED THAT HE WOULD NOT BE COMING BACK TO SEE PT, STATING "I DON'T KNOW WHY HE GETS WEIRD LIKE THAT." ALFONZO WOULD NOT ELABORATE ABOUT ARGUMENT AND APOLOGIZED FOR MAKING A MESS. HE GOT IN TO SHOWER WITHOUT ASKING TO HAVE HIS IV COVERED FIRST. SPILL ON FLOOR MOPPED. LINENS CHANGED. AFTER SHOWER, ALFONZO WAS DRESSED IN STREET CLOTHES. WHEN ASKED, HE STATED HE WAS NOT GOING ANYWHERE. THEN PROCEEDED TO PLACE SOME OF HIS BELONGINGS IN A TRASH BAG. WILL CONTINUE TO MONITOR.
--- NOTE | 2021-11-03 18:02 | NUR ---
SHIFT SUMMARY: NO ACUTE EVENTS. C/O 10/10 PAIN IN HEAD, NECK, AND SHOULDERS; MEDICATED PER EMAR. FACIAL RASH APPEARS TO BE RESOLVING. TOLERATING REGULAR DIET. MILD TACHYCARDIA IN LOW 100'S. NO FURTHER OUTBURSTS AFTER VISIT FROM BROTHER, WAS VERY APOLOGETIC. INDEPENDENT IN ROOM.
--- NOTE | 2021-11-04 04:07 | NUR ---
SHIFT SUMMARY NO ACUTE CHANGES TO PT CONDITION. PT PLEASANT AND COOPERATIVE. PT GIVEN SNACKS EARLY IN THE SHIFT AND PT THEN SLEEPS OFF AND ON. CALL LIGHT IS WITHIN REACH. WILL CONTINUE TO MONITOR.
--- NOTE | 2021-11-04 17:22 | NUR ---
SHIFT SUMMARY PT AOX4; INDEPENDENT IN THE ROOM. PT MEDICATED FOR PAIN AND ANXIETY; FEELING MUCH BETTER PER PT. HE WANTED TO GO HOME THIS AM; EDUCATED THE REASON OF STAYING HERE FOR MORE ABX AND TX PLANS. BED IS IN THE LOWEST POSITION AND CALL LIGHT WITHIN REACH
--- NOTE | 2021-11-05 04:40 | NUR ---
SHIFT SUMMARY ASSUMED CARE OF PT AT 1900. PT IS A/OX4. PT IS INDEPENDENT IN ROOM. HEART SOUNDS REGULAR, LUNG SOUNDS CLEAR. PT C/O PAIN IN HIS BACK. MEDICATED PER EMAR. NO OTHER EVENTS, PT MENTIONED THAT HE WANTED TO LEAVE HOME.
--- NOTE | 2021-11-05 15:55 | NUR ---
SHIFT SUMMARY- PT PLEASENT THROUGHOUT SHIFT. PAIN MANAGED PER EMAR. APPETITE APPROPIATE. PT INDEPENDANT IN ROOM. CALL LIGHT AT BEDSIDE.
--- NOTE | 2021-11-05 17:03 | NUR ---
SHIFT SUMMARY- SEE NURSE NOTES..
--- NOTE | 2021-11-05 18:09 | NUR ---
THIS NEW AUTOS DELIVERY DRIVER HAS REVIEWED ALL ASSESSMENTS AND NOTES BY SAIGE GONZALES AND AGREES WITH THEM.
--- NOTE | 2021-11-06 05:28 | NUR ---
SHIFT SUMMARY PATIENT SLEPT THROUGHOUT THE NIGHT, VSS ON RA, REPORTING PAIN TO HIS BACK, PRN PAIN MEDICATION ADMINSTERED X1, INDEPENDENT IN THE ROOM, PATIENT SPEAKING ABOUT THE POTENTIAL FOR OUTPATIENT ABX HE HAS THINGS TO DO OUTSIDE OF THE HOSPITAL, EDUCATED PATIENT ABOUT POTENTIAL BARRIERS TO OUTPATIENT ABX, VERBALIZED UNDERSTANING, REPORTING THAT THE RASH TO HIS FACE IS IMPROVING
--- NOTE | 2021-11-06 16:28 | NUR ---
SHIFT SUMMARY- PT EXPRESSIVE OF NEEDS. PT CONTENT AND LESS ANXIOUS TODAY STATED. PT EXPRESSED SOME PAIN IN NECK/BACK, TREATED PER EMAR. PT APPETITE ADEQUATE. PT HAD VISITORS TODAY. PT INDEPENDANT IN ROOM. PT RESTING COMFORTABLY WITH CALL LIGHT AT SIDE.
--- NOTE | 2021-11-06 18:22 | NUR ---
THIS SALES PRODUCT SPECIALIST HAS REVIED ALL OF [facility] RN NOTES AND ASSESSMENTS AND AGREES WITH THEM.
--- NOTE | 2021-11-07 04:42 | NUR ---
SHIFT SUMMARY PT IS A 36 Y/O MALE, ADMITTED FOR BACTERIAL MENINGITIS. HE IS A&O X 4, INDEPENDENT IN THE ROOM. PT DENIED ANY C/O NEELY OR NAUSEA, BUT DID REPORT ANXIETY AND WAS MEDICATED WITH SCHEDULED ATARAX. VITAL SIGNS STABLE. NO ACUTE CHANGES IN PT CONDITION NOTED DURING THE NIGHT. WILL CONTINUE TO MONITOR AND TREAT PER EMAR UNTIL HAND OFF TO DAY SHIFT RN.
--- NOTE | 2021-11-07 16:12 | NUR ---
DAY SHIFT SUMMARY 36 YR OLD MALE PT IN FOR BACTERIAL MENENGITIS. PT HAS HISTORY OF HIV. PT ON DROPLET PRECAUTIONS, REGULAR DIET. SOCIAL SERVICE CONSULT ORDERED. PT HOMELESS AT TIME OF ADMIT, PT STATES HE WILL LIVE WITH HIS BROTHER ON DISCHARGE. NO ACUTE CHANGES THIS SHIFT. CALL LIGHT WITHIN REACH AND PT ABLE TO CALL APPROPRIATELY.
--- NOTE | 2021-11-08 07:51 | NUR ---
PT SLEPT THROUGHOUT THE NIGHT. A/OX4. NO ACUTE CHANGES NOTED.
--- NOTE | 2021-11-08 16:25 | NUR ---
DAY SHIFT SUMMARY 36 YR OLD MALE PT WITH BACTERIAL MENENGITIS, HX OF HIV, A/O X4 INDEPENDENT IN ROOM. SOCIAL SERVICE REFERAL, HOUSING AND INFECTIOUS DISEASE CONSULT NEEDED FOR DC. 14 DAY STAY ESTIMATED. CALL LIGHT WITHIN REACH OF PT AND ABLE TO CALL APPROPRIATE. NO ACUTE CHANGES THIS SHIFT.
--- NOTE | 2021-11-08 21:22 | NUR ---
PT GAVE CONSENT TO PROVIDE CARE 11/08/21.
--- NOTE | 2021-11-09 04:20 | NUR ---
36 M WITH BACTERIAL MENINGITIS. HX HIV, SYPHILIS, IV DRUG USE. PT HAS NOT TAKEN HIV MEDS LAST 6 MOS. PT ON DROPLET PRECAUTIONS. PT A&O X 4. PT STATED PN OF 10/10 AND MEDICATED PER EMAR WITH OXYCODONE AND UPON REASSESSMENT PN WAS 2/10. PT EXPERIENCED NO ACUTE CHANGES DURING SHIFT. PT VS STABLE. PT IS CURRENTLY SLEEPING WITH CALL LIGHT WITHIN REACH.
--- NOTE | 2021-11-09 06:16 | NUR ---
I AM IN AGREEMENT WITH EMERGENCY MEDICAL SERVICE COORDINATOR NOTES AND ASSESSMENT.
[2021-11-09 06:37] LABS: Hematocrit 32.1 % (37.0-53.0); Hemoglobin 9.9 g/dL (13.5-17.5)
[2021-11-09 06:54] LABS: Alanine Aminotransfer (ALT/SGP 47 U/L (12-78); Albumin, Blood 2.8 g/dL (3.4-5.0); Albumin/Globulin Ratio 0.6 (0.8-1.8); Alk Phos 88 U/L (50-136); Anion Gap 5 mmol/L (6-16); Aspartate Aminotrans (AST/SGOT 23 U/L (12-37); Bilirubin, Total 0.1 mg/dL (0.1-1.0); Blood Urea Nitrogen 20 mg/dL (8-24); Bun/Creatinine Ratio 31.1 (12.0-20.0); CO2, Blood 29 mmol/L (21-32); Calcium, Blood 8.5 mg/dL (8.5-10.1); Chloride, Blood 107 mmol/L (98-108); Creatinine, Blood 0.64 mg/dL (0.60-1.20); Globulin, Blood 4.9 g/dL (2.2-4.0); Glomerular Filtration Rate >60 (60-); Glucose, Blood 93 mg/dL (70-99); Potassium, Blood 3.9 mmol/L (3.5-5.5); Sodium, Blood 141 mmol/L (136-145); Total Protein, Blood 7.7 g/dL (6.4-8.2)
--- NOTE | 2021-11-09 17:23 | NUR ---
PT PLEASANT AND COMPLIANT THROUGHOUT SHIFT. PT A&O X4. PT C/O OF PAIN, MANAGED PER EMAR. PT INDEPENDANT IN ROOM. PT RESTING COMFORTABLY WITH CALL LIGHT WITHIN REACH.
--- NOTE | 2021-11-09 21:31 | NUR ---
PT GAVE CONSENT TO PROVIDE CARE 11/09/21.
--- NOTE | 2021-11-10 05:04 | NUR ---
PT A&O X 4. PT PLEASANT THROUGHOUT SHIFT. PT HAD COMPLAINT OF PAIN IN BACK AND RIGHT SHOULDER. PAIN WAS RELIEVED PER EMAR. PT VS STABLE. PT EXCITED ABOUT HOPEFULLY BEING DISCHARGED ON 11/10/21. PT IS CURRENTLY SLEEPING WITH CALL LIGHT WITHIN REACH.
[2021-11-10] MEDS ORDERED: MIRT15 (11:57)
--- NOTE | 2021-11-10 15:22 | NUR ---
PATIENT DISCHARGED TODAY Pt discharged home after ABX 1300. Pt denies pain/discomfort, vitals stable. MD assessed pt at bedside. RN reviewed discharge teaching, pt verbalized understanding. Education provided on Syphillis, HIV & CD4 count, reinforced eduction on the important of HIV medication adherence. D/C paperwork included a referral to local Infectious Disease MD. Removed midline, catheter intact. Pt left unit at 1300.
== END 2021-11-10 13:14 | disposition home or self-care (01) | DRG 974 ==
LOC: ER 21:28 → MEDS 21:29 → PCU 10-28 03:55 → MEDS 11-01 01:55
PROVIDERS: Family Medicine; Student in an Organized Health Care Education/Training Program; ADMIT Internal Medicine
PROC: 009U3ZX Drainage of Spinal Canal, Percutaneous Approach, Diagnostic (ICD-10-PCS; principal; 2021-10-28)
PROC: 3E03329 Introduction of Other Anti-infective into Peripheral Vein, Percutaneous Approach (ICD-10-PCS; 2021-10-28)
DX: A41.51 Sepsis due to Escherichia coli [E. coli] (principal); G00.8 Other bacterial meningitis; B20 Human immunodeficiency virus [HIV] disease; G93.41 Metabolic encephalopathy; G04.90 Encephalitis and encephalomyelitis, unspecified; B96.20 Unspecified Escherichia coli [E. coli] as the cause of diseases classified elsewhere; Z59.00 Homelessness unspecified; F41.9 Anxiety disorder, unspecified; K59.00 Constipation, unspecified; L21.0 Seborrhea capitis; F32.A Depression, unspecified; D64.9 Anemia, unspecified; F17.200 Nicotine dependence, unspecified, uncomplicated; Z88.0 Allergy status to penicillin; Z91.018 Allergy to other foods
CPT/HCPCS: 36415; 62270; 70450; 71045; 80048; 80053; 81003; 82945; 83605; 84157; 85014; 85018; 85025; 86361; 86403; 86592; 86593; 86682; 86780; 87040; 87070; 87077; 87102; 87186; 87205; 87252; 87254; 87483; 87491; 87536; 87591; 87901; 89051; 93005; 93010; 96365; 96372; 96375; 99285-25; A9270; C1751; G0378; J0696; J1650; J2405; J3370; J7030; J7040; J7050